=== PATIENT | male | born 1965 | race Two or more races ===

== ENCOUNTER 2019-05-21 16:06 | Emergency (ER) | payer OTHER ==
[2019-05-21 16:13] VITALS: BMI 25.7
--- NOTE | 2019-05-21 18:34 | PDOC ---
History of Present Illness - General Chief Complaint: Chest Pain Stated Complaint: CHEST PAIN X3 DAYS Time Seen by Provider: 05/21/19 17:36 History Source: Patient Exam Limitations: Language Barrier - History of Present Illness Initial Comments: 05/21/19 18:29 53yo M with PMH of NIDDM presenting to ED with complaints of on and off chest pain and shortness of breath with palpitations x3d. Pt states that three days ago he had a pain in the middle of his chest which was not triggered by anything but relieved by Aleeve. He had a similar episode today relieved by Aleeve. The episodes of shortness of breath which are brief are not associated with the chest pain. Pt states he has random episodes of sob with palpitations and does not know why. It is not brought on by exertion. 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 Right now patient is not experiencing any symptoms. Denies syncope, abdominal pain, n/v/d, cough, congestion, back pain, numbness/ tingling, headache. He denies history of CVD in the family and is a non smoker. PMD: none PSH: none Meds: Metformin Allergies: nkda Past History - Past Medical History Allergies/Adverse Reactions: Allergies Allergy/AdvReac Type Severity Reaction Status Date / Time No Known Allergies Allergy Verified 05/21/19 16:13 COPD: No Diabetes: Yes (NIDDM) - Suicide/Smoking/Psychosocial Hx Smoking History: Never smoked Review of Systems - Review of Systems Constitutional: No: Symptoms Reported HEENTM: No: Symptoms Reported Respiratory: Yes: See HPI Cardiac (ROS): Yes: See HPI ABD/GI: No: Symptoms Reported : No: Symptoms Reported Musculoskeletal: Yes: See HPI Integumentary: No: Symptoms Reported Neurological: No: Symptoms reported *Physical Exam - Vital Signs Last Vital Signs Temp Pulse Resp BP Pulse Ox 97 F L 99 H 18 140/89 98 05/21/19 16:10 05/21/19 16:10 05/21/19 16:10 05/21/19 16:10 05/21/19 16:10 - Physical Exam General Appearance: Yes: Nourished, Appropriately Dressed. No: Apparent Distress HEENT: positive: EOMI, JANA, Normal ENT Inspection Neck: positive: Trachea midline, Supple Respiratory/Chest: positive: Lungs Clear, Normal Breath Sounds. negative: Chest Tender, Accessory Muscle Use, Decreased Breath Sounds, Crackles, Rales, Rhonchi, Stridor, Wheezing Cardiovascular: positive: Regular Rhythm, Regular Rate, S1, S2. negative: Edema , JVD Vascular Pulses: Dorsalis-Pedis (R): 2+, Doralis-Pedis (L): 2+ Gastrointestinal/Abdominal: positive: Normal Bowel Sounds, Soft. negative: Tender Musculoskeletal: negative: CVA Tenderness, CVA Tenderness (R) Extremity: positive: Normal Capillary Refill. 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 II-XII NML intact, Fully Oriented, Alert, Normal Mood/ Affect, Normal Response, Motor Strength 5/5 Heart Score/ECG Review - History History: Slightly suspicious - Electrocardiogram EKG: Normal - Age Age: 45-65 - Risk Factors Risk Factors Heart Score: Yes Hx Diabetes Based on the list above the patient has:: 1-2 risk factors - Troponin Troponin: </= normal limit - Score Heart Score - Total: 2 ED Treatment Course - LABORATORY CBC & Chemistry Diagram: 05/21/19 18:00 05/21/19 18:00 - RADIOLOGY Radiology Studies Ordered: Category Date Time Status CHEST PA & LAT [RAD] Stat Radiology 05/21/19 17:44 Ordered Medical Decision Making - Medical Decision Making 05/21/19 18:33 53yo M with PMH of NIDDM presenting to ED with complaints of on and off chest pain and shortness of breath with palpitations x3d. Pt states that three days ago he had a pain in the middle of his chest which was not triggered by anything but relieved by Aleeve. He had a similar episode today relieved by Aleeve. The episodes of shortness of breath which are brief are not associated with the chest pain. Pt states he has random episodes of sob with palpitations and does not know why. It is not brought on by exertion. 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 Right now patient is not experiencing any symptoms. Denies syncope, abdominal pain, n/v/d, cough, congestion, back pain, numbness/ tingling, headache. He denies history of CVD in the family and is a non smoker. Vitals: HR 99 PE: benign, no pain with palpation or with msk movement. Pain is likely msk given relief with NSAIDs. Will check d-dimer to rule out pe: cannot apply PERC and no other explanation for sob. Also checking cardiac labs, TSH, ekg, cxr. Low suspicion for asthma/copd, ild Pt is asymptomatic at this time, does not require acute intervention. ekg: NSR at 94bpm. NJ 140, Qtc 432. No kobi or depressions. 05/21/19 19:37 No white count, d-dimer negative. Chem and trop pending. CXR: no infiltrates, effusion or consolidations. Normal mediastinum and heart size. HEART score 1-2. Most likely msk in nature. Has been having pain for 3 days. If labs normal, can be dc home. Will give cardiology follow up. *DC/Admit/Observation/Transfer Diagnosis at time of Disposition: Shortness of breath Chest pain Qualifiers: Chest pain type: unspecified Qualified Code(s): R07.9 - Chest pain, unspecified - Discharge Dispostion Disposition: HOME Condition at time of disposition: Improved Decision to Admit order: No - Referrals Referrals: Rafita Gong MD [Staff Physician] - [facility] [place] [facility] [place]] - Patient Instructions Printed Discharge Instructions: DI for Shortness of Breath, DI for Chest Pain Additional Instructions: You were seen in the emergency room today for chest pain and shortness of breath. The pain is probably due to muscle soreness. I do not know the exact reason why you feel short of breath but the blood work, ekg and xray are all normal. I recommend that you make an appointment with a primary care doctor. Information for a clinic you can go to has been provided below. I also recommend seeing a lehr operator for evaluation of your heart. Referral is also provided below. You can continue to take Aleeve or Advil for the pain. Come back to the emergency room if pain gets worse, you cannot breathe, you have chest pain going to the left side of the chest, you have pain from the chest going into the back or if any new concerning symptom develops. Thank you Print Language: THAI - Post Discharge Activity
[2019-05-21 18:43] LABS: BASO % 0.6 % (0-2.0); EOS % 0.4 % (0-4.5); HEMATOCRIT 49.3 % (35.4-49); HEMOGLOBIN 16.9 GM/dL (11.7-16.9); LYMPH % 21.7 % (8-40); MCH 31.8 pg (25.7-33.7); MCHC 34.2 g/dl (32.0-35.9); MEAN CELL VOLUME 92.9 fl (80-96); MEAN PLT VOLUME 9.5 fl (7.5-11.1); MONO % 8.2 % (3.8-10.2); NEUT % 69.1 % (42.8-82.8); PLATELET COUNT 231 K/MM3 (134-434); RBC 5.31 M/mm3 (4.00-5.60); RDW 12.7 % (11.9-15.9); WHITE BLOOD COUNT 10.8 K/mm3 (4.0-10.0)
--- NOTE | 2019-05-21 18:48 | PDOC ---
Documentation entered by Anupama Garcia SCRIBE, acting as scribe for Salma Metcalf MD. Salma Metcalf MD: This documentation has been prepared by the Radha ahn Sammi, SCRIBE, under my direction and personally reviewed by me in its entirety. I confirm that the documentation accurately reflects all work, treatment, procedures, and medical decision making performed by me. Attending Attestation - Resident Resident Name: Danielle Luz - [facility] HPI: 05/21/19 18:07 The patient is a 53 year old male, with a significant PMH of DM, who presents to the emergency department for evaluation of 3 days of intermittent chest pain which is relieved with aleve. 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 He also complains of shortness of breath and 2 days of palpitations which is not associated with the chest pain. The patient denies headache and dizziness. Denies fever, chills, nausea, vomiting, diarrhea and constipation. Denies dysuria, frequency, urgency and hematuria. Allergies: NKA Social history: None reported - Physicial Exam PE: 05/21/19 18:07 CONSTITUTIONAL: Well-appearing; well-nourished; in no apparent distress HEAD: Normocephalic; atraumatic EYES: PERRL; EOM intact ENMT: External appears normal; normal oropharynx NECK: Supple; non-tender; no cervical lymphadenopathy CARD: Normal S1, S2; no murmurs, rubs, or gallops RESP: Normal chest excursion with respiration; breath sounds clear and equal bilaterally; no wheezes, rhonchi, or rales ABD: Soft, non-distended; non-tender; no palpable organomegaly, no palpable hernias EXT: Normal ROM in all four extremities; non-tender to palpation; distal pulses intact SKIN: Warm, dry, no rash NEURO: No focal neurological deficiencies. 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 Pt says the pain responds to advil. 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 Pt is currently asymptomactic with no actual complaints. Pt h/o dm on Metformin Plan: cbc, cmp,inr, d -dimer, trop, ekg , ua and reevaluate. Case endorsed to oncoming physician to f/u labs and make final disposition based on labs and physical exam.
[2019-05-21 19:23] LABS: MAGNESIUM 1.8 mg/dL (1.8-2.4)
[2019-05-21 19:41] LABS: ALBUMIN 4.6 g/dl (3.4-5.0); BILIRUBIN,TOTAL 0.9 mg/dL (0.2-1); BLOOD UREA NITROGEN 14.6 mg/dL (7-18); CALCIUM 9.7 mg/dL (8.5-10.1); CREATININE 1.1 mg/dL (0.55-1.3); POTASSIUM 4.4 mmol/L (3.5-5.1); TOT PROT 8.8 g/dl (6.4-8.2)
[2019-05-21] MEDS ORDERED: SODIUM CHLORIDE 500 ML IV STA (20:44)
[2019-05-21 21:11] VITALS: BP 116/79; PULSE 90; TEMP 97.3
--- NOTE | 2019-05-21 21:16 | PDOC ---
*Physical Exam - Vital Signs Last Vital Signs Temp Pulse Resp BP Pulse Ox 97.3 F L 90 20 116/79 98 05/21/19 21:11 05/21/19 21:11 05/21/19 21:11 05/21/19 21:11 05/21/19 21:11 ED Treatment Course - LABORATORY CBC & Chemistry Diagram: 05/21/19 18:00 05/21/19 18:00 - ADDITIONAL ORDERS Additional order review: Laboratory Results 05/21/19 05/21/19 05/21/19 18:00 18:00 18:00 D-Dimer < 215 Sodium 137 Potassium 4.4 Chloride 102 Carbon Dioxide 26 Anion Gap 10 BUN 14.6 Creatinine 1.1 Est GFR (CKD-EPI)AfAm 88.36 Est GFR (CKD-EPI)NonAf 76.24 Random Glucose 177 H Calcium 9.7 Magnesium 1.8 Total Bilirubin 0.9 AST 24 ALT 25 Alkaline Phosphatase 104 Troponin I < 0.02 Total Protein 8.8 H Albumin 4.6 TSH 1.23 05/21/19 18:00 RBC 5.31 MCV 92.9 MCHC 34.2 RDW 12.7 MPV 9.5 Neutrophils % 69.1 Lymphocytes % 21.7 Monocytes % 8.2 Eosinophils % 0.4 Basophils % 0.6 Medical Decision Making - Medical Decision Making 05/21/19 21:14 Pt here for dizziness and CP; 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 He is diabetic; well controlled. Labs normal; Trop normal; EKG normal. Vitals normal and exam normal. Pt will be discharged home with a work note. Stable for d/c he feels great. *DC/Admit/Observation/Transfer Diagnosis at time of Disposition: Shortness of breath Chest pain Qualifiers: Chest pain type: unspecified Qualified Code(s): R07.9 - Chest pain, unspecified - Discharge Dispostion Disposition: HOME Condition at time of disposition: Improved - Referrals Referrals: [facility] [place] [facility] [place] [Provider Group] Rafita Gong MD [Staff Physician] - - Patient Instructions Printed Discharge Instructions: DI for Shortness of Breath, DI for Chest Pain Additional Instructions: You were seen in the emergency room today for chest pain and shortness of breath. The pain is probably due to muscle soreness. I do not know the exact reason why you feel short of breath but the blood work, ekg and xray are all normal. I recommend that you make an appointment with a primary care doctor. Information for a clinic you can go to has been provided below. I also recommend seeing a college associate for evaluation of your heart. Referral is also provided below. You can continue to take Aleeve or Advil for the pain. Come back to the emergency room if pain gets worse, you cannot breathe, you have chest pain going to the left side of the chest, you have pain from the chest going into the back or if any new concerning symptom develops. Thank you Print Language: POLISH - Post Discharge Activity
--- NOTE | 2019-05-21 21:16 | PDOC ---
*Physical Exam - Vital Signs Last Vital Signs Temp Pulse Resp BP Pulse Ox 97.3 F L 90 20 116/79 98 05/21/19 21:11 05/21/19 21:11 05/21/19 21:11 05/21/19 21:11 05/21/19 21:11 ED Treatment Course - LABORATORY CBC & Chemistry Diagram: 05/21/19 18:00 05/21/19 18:00 - ADDITIONAL ORDERS Additional order review: Laboratory Results 05/21/19 05/21/19 05/21/19 18:00 18:00 18:00 D-Dimer < 215 Sodium 137 Potassium 4.4 Chloride 102 Carbon Dioxide 26 Anion Gap 10 BUN 14.6 Creatinine 1.1 Est GFR (CKD-EPI)AfAm 88.36 Est GFR (CKD-EPI)NonAf 76.24 Random Glucose 177 H Calcium 9.7 Magnesium 1.8 Total Bilirubin 0.9 AST 24 ALT 25 Alkaline Phosphatase 104 Troponin I < 0.02 Total Protein 8.8 H Albumin 4.6 TSH 1.23 05/21/19 18:00 RBC 5.31 MCV 92.9 MCHC 34.2 RDW 12.7 MPV 9.5 Neutrophils % 69.1 Lymphocytes % 21.7 Monocytes % 8.2 Eosinophils % 0.4 Basophils % 0.6 Medical Decision Making - Medical Decision Making 05/21/19 21:[address] Luz. Patient pending troponin for discharge which was negative. Suspect MSK origin of pain. Discharging to home for further outpatient f/u as needed. *DC/Admit/Observation/Transfer Diagnosis at time of Disposition: Shortness of breath Chest pain Qualifiers: Chest pain type: unspecified Qualified Code(s): R07.9 - Chest pain, unspecified - Discharge Dispostion Disposition: HOME Condition at time of disposition: Improved - Referrals Referrals: [facility] [place] [facility] [place] [Provider Group] Rafita Gong MD [Staff Physician] - - Patient Instructions Printed Discharge Instructions: DI for Shortness of Breath, DI for Chest Pain Additional Instructions: You were seen in the emergency room today for chest pain and shortness of breath. The pain is probably due to muscle soreness. I do not know the exact reason why you feel short of breath but the blood work, ekg and xray are all normal. I recommend that you make an appointment with a primary care doctor. Information for a clinic you can go to has been provided below. I also recommend seeing a invoice classification clerk for evaluation of your heart. Referral is also provided below. You can continue to take Aleeve or Advil for the pain. Come back to the emergency room if pain gets worse, you cannot breathe, you have chest pain going to the left side of the chest, you have pain from the chest going into the back or if any new concerning symptom develops. Thank you Print Language: ENGLISH - Post Discharge Activity Forms/Work/School Notes: Back to Work
--- NOTE | 2019-05-22 13:10 | EKG ---
Test Reason : Blood Pressure : / mmHG Vent. Rate : 094 BPM Atrial Rate : 094 BPM P-R Int : 140 ms QRS Dur : 086 ms QT Int : 346 ms P-R-T Axes : 051 040 045 degrees QTc Int : 432 ms NORMAL SINUS RHYTHM NORMAL ECG NO PREVIOUS ECGS AVAILABLE Confirmed by Rabia Bolivar ([id number]) on 05/22/2019 1:09:57 PM Referred By: Confirmed By:Rabia Bolivar
== END 2019-05-21 21:33 | disposition home or self-care (01) ==
LOC: JER 16:06
PROC: 3E0337Z Introduction of Electrolytic and Water Balance Substance into Peripheral Vein, Percutaneous Approach (ICD-10-PCS; principal; 2019-05-21)
DX: R07.9 Chest pain, unspecified (principal); E11.9 Type 2 diabetes mellitus without complications; Z79.84 Long term (current) use of oral hypoglycemic drugs
CPT/HCPCS: 36415; 71046-TC-FY; 80053; 83735; 84443; 84484; 85025; 85379; 93005; 93010; 96360; 99284-25

== ENCOUNTER 2019-09-12 10:23 | Emergency (ER) | payer OTHER ==
[2019-09-12 10:36] VITALS: BP 116/93; PULSE 108; TEMP 98.5; BMI 26.2
--- NOTE | 2019-09-12 10:55 | PDOC ---
History of Present Illness - General Chief Complaint: Back Pain Stated Complaint: BACK PAIN Time Seen by Provider: 09/12/19 10:44 History Source: Patient Exam Limitations: No Limitations Past History - Travel Traveled outside of the country in the last 30 days: No Close contact w/someone who was outside of country & ill: No - Past Medical History Allergies/Adverse Reactions: Allergies Allergy/AdvReac Type Severity Reaction Status Date / Time No Known Allergies Allergy Verified 05/21/19 16:13 Home Medications: Ambulatory Orders Ibuprofen 600 mg PO Q6H #30 tablet 09/12/19 Methocarbamol [Robaxin -] 500 mg PO BID #14 tablet 09/12/19 COPD: No Diabetes: Yes (NIDM) - Immunization History Immunization Up to Date: Yes - Psycho Social/Smoking Cessation Hx Smoking History: Never smoked Information on smoking cessation initiated: No Hx Alcohol Use: No Drug/Substance Use Hx: No Review of Systems - Review of Systems Able to Perform ROS?: Yes Comments:: 09/12/19 11:59 CONSTITUTIONAL: Absent: fever, chills, diaphoresis, generalized weakness, malaise, loss of appetite HEENT: Absent: rhinorrhea, nasal congestion, throat pain, throat swelling, difficulty swallowing, mouth swelling, ear pain, eye pain, visual Changes CARDIOVASCULAR: Absent: chest pain, loss of consciousness, palpitations, irregular heart rate, peripheral edema RESPIRATORY: Absent: cough, shortness of breath, dyspnea with exertion, orthopnea, wheezing, stridor, hemoptysis MUSCULOSKELETAL: Present: Low back pain, upper back pain, left shoulder pain. Absent: myalgia, joint swelling SKIN: Absent: rash, itching, pallor NEUROLOGIC: Absent: headache, focal weakness or paresthesias, dizziness, unsteady gait, seizure, mental status changes, bladder or bowel incontinence PSYCHIATRIC: Absent: anxiety, depression, suicidal or homicidal ideation, hallucinations. Is the patient limited Tamazight proficient: No *Physical Exam - Vital Signs Last Vital Signs Temp Pulse Resp BP Pulse Ox 98.5 F 108 H 18 116/93 100 09/12/19 10:33 09/12/19 10:33 09/12/19 10:33 09/12/19 10:33 09/12/19 10:33 - Physical Exam Comments: 09/12/19 12:07 GENERAL: Well developed, well nourished. Awake and alert. No acute distress. HEENT: Normocephalic, atraumatic. PERRLA, EOMI. No conjunctival pallor. Sclera are non- icteric. Moist mucous membranes. Oropharynx is clear. NECK: Supple. Full ROM. No JVD. Carotid pulses 2+ and symmetric, without bruits. No thyromegaly. No lymphadenopathy. CARDIOVASCULAR: Regular rate and rhythm. No murmurs, rubs, or gallops. Distal pulses are 2+ and symmetric. PULMONARY: No evidence of respiratory distress. Lungs clear to auscultation bilaterally. No wheezing, rales or rhonchi. ABDOMINAL: Soft. Non-tender. Non-distended. No rebound or guarding. No organomegaly. Normoactive bowel sounds. MUSCULOSKELETAL Normal range of motion at all joints. No bony deformities or tenderness. No CVA tenderness. EXTREMITIES: No cyanosis. No clubbing. No edema. No calf tenderness. SKIN: Warm and dry. Normal capillary refill. No rashes. No jaundice. NEUROLOGICAL: Alert, awake, appropriate. Cranial nerves 2-12 intact. No deficits to light touch and temperature in face, upper extremities and lower extremities. No motor deficits in the in face, upper extremities and lower extremities. Normoreflexic in the upper and lower extremities. Normal speech. Toes are down- going bilaterally. Gait is normal without ataxia. PSYCHIATRIC: Cooperative. Good eye contact. Appropriate mood and affect. Medical Decision Making - Medical Decision Making 09/12/19 12:07 The patient is a 53-year-old male who presents to the ER for injuries from a fall. He states that 3 days ago he was at work standing on a ladder about ceiling height when he fell. He states he landed on his back and his left shoulder. He states at the time of the fall he only had left foot pain and left elbow pain. He was evaluated in urgent care and was told his x-rays did not have any broken bones. He states that this morning he woke up with low back pain, upper back pain and he felt his shoulder move. He states that he is a bump over his left shoulder. Denies fevers, chills, numbness and tingling and weakness the affected extremities, saddle anesthesia and bladder bowel incontinence. A/P: Injuries from a fall -Pt with TTP of the L paraspinous muscles, L3-L5, T6-T10, with palpable knot consistent with muscle spasm. Positive midline tenderness. Negative straight leg raise testing bilaterally. -Bump noticed over the left clavicle just proximal to the shoulder joint. -No saddle anesthesia or bladder/bowel incontinence. No CVA tenderness. -X-rays show no fractures at this time. Likely a left AC joint sprain given the bump over the clavicle. Will recommend a sling. -Pt is neurologically intact on exam with no focal findings. -Toradol given with relief of symptoms -DC home. Ortho follow up given for if symptoms do not resolve. -I discussed the physical exam findings, ancillary test results and final diagnoses with the patient. I answered all of the patient's questions. The patient was satisfied with the care received and felt comfortable with the discharge plan and treatment plan. The Patient agrees to follow up with the primary care physician/specialist within 24-72 hours. Return precautions were given. Discharge - Discharge Information Problems reviewed: Yes Clinical Impression/Diagnosis: Back pain Qualifiers: Back pain location: low back pain Chronicity: acute Back pain laterality: midline Sciatica presence: without sciatica Qualified Code(s): M54.5 - Low back pain Left shoulder pain Qualifiers: Chronicity: acute Qualified Code(s): M25.512 - Pain in left shoulder Condition: Stable Disposition: HOME - Admission No - Follow up/Referral Referrals: Shad Jaimes MD [Staff Physician] - - Patient Discharge Instructions Patient Printed Discharge Instructions: DI for Low Back Pain, DI for Shoulder Pain Additional Instructions: You were evaluated for your pain today after your fall. Your x-rays did not show any broken bones. I suspect you have a sprain of your clavicle which is why there is the bump. Please use the sling for comfort. Follow-up with orthopedics this week. You may take the Motrin starting tonight. Take 600 mg every 6 hours as needed for pain. You may take the Robaxin twice a day. This is a muscle relaxer. Do not drink or drive after taking this medication as it may make you drowsy. Return to the ER for any new or worsening symptoms. Te evaluaron para tu dolor hoy despus de tu cada. Las radiografas no mostraron huesos rotos. Sospecho que tienes un esguince de tu clavcula por eso est el bulto. Por favor, utilice el eslinga para mayor comodidad. Seguimiento con ortopedia esta semana. Puedes david el Motrin a partir de esta noche. Temperance 600 mg cada 6 horas segn sea necesario para el dolor. Puede david el Robaxin dos veces al da. Sarah es un relajante muscular. No karan ni conduzca despus de david sarah medicamento, ya que puede causarle somnolencia. Regrese a Urgencias para cualquier sntoma nuevo o que empeore. Print Language: CONGOLESE - Post Discharge Activity Work/Back to School Note: Back to Work
[2019-09-12] MEDS ORDERED: LIDOCAINE 5% TOPICAL PATCH TP ONE (11:36)
[2019-09-12] MEDS ORDERED: KETOROLAC TROMETHAMINE 60 MG/2 ML VIAL IM ONE (11:36)
[2019-09-12] MEDS ORDERED: LIDOCAINE 5% TOPICAL PATCH ONE (11:39)
[2019-09-12] MEDS ORDERED: KETOROLAC TROMETHAMINE 60 MG/2 ML VIAL ONE (11:39)
== END 2019-09-12 12:45 | disposition home or self-care (01) ==
LOC: JERFT 10:23
PROC: 3E0233Z Introduction of Anti-inflammatory into Muscle, Percutaneous Approach (ICD-10-PCS; principal; 2019-09-12)
DX: M54.5 Low back pain (principal); M25.512 Pain in left shoulder; W11.XXXA Fall on and from ladder, initial encounter; Y93.89 Activity, other specified; Y92.69 Other specified industrial and construction area as the place of occurrence of the external cause; Y99.0 Civilian activity done for income or pay; E11.9 Type 2 diabetes mellitus without complications; Z79.84 Long term (current) use of oral hypoglycemic drugs
CPT/HCPCS: 72070-TC-FY; 72100-TC-FY; 73000-TC-LT-FY; 73030-TC-LT-FY; 99282-25

== ENCOUNTER 2019-11-16 12:30 | Emergency (ER) | payer OTHER ==
--- NOTE | 2019-11-16 12:48 | PDOC ---
Rapid Medical Evaluation Time Seen by Provider: 11/16/19 12:40 Medical Evaluation: Allergies Allergy/AdvReac Type Severity Reaction Status Date / Time No Known Allergies Allergy Verified 05/21/19 16:13 11/16/19 12:46 CC: chronic left shoulder pain. Requesting pain Rx. Follows with ortho PE: No acute findings. Orders: toradol Patient will proceed to the ED for further evaluation. 11/16/19 12:49 Discharge Disposition - Diagnosis Left shoulder pain - Referrals - Patient Instructions - Post Discharge Activity
[2019-11-16] MEDS ORDERED: KETOROLAC TROMETHAMINE 30 MG/1 ML VIAL IM ONE (12:51)
[2019-11-16 12:56] VITALS: BP 113/84; PULSE 111; TEMP 97.3; BMI 27.4
[2019-11-16] MEDS ORDERED: KETOROLAC TROMETHAMINE 30 MG/1 ML VIAL ONE (13:23)
--- NOTE | 2019-11-16 13:39 | PDOC ---
History of Present Illness - General Chief Complaint: Pain Stated Complaint: PAIN Time Seen by Provider: 11/16/19 12:40 History Source: Patient - History of Present Illness Occurred: reports: this morning Upper Extremity Pain Location: left: shoulder Past History - Past Medical History Allergies/Adverse Reactions: Allergies Allergy/AdvReac Type Severity Reaction Status Date / Time No Known Allergies Allergy Verified 05/21/19 16:13 Home Medications: Ambulatory Orders Ibuprofen 600 mg PO Q6H #30 tablet 09/12/19 Methocarbamol [Robaxin -] 500 mg PO BID #14 tablet 09/12/19 Naproxen 500 mg PO BID #30 tablet 11/16/19 COPD: No Diabetes: Yes (NIDM) - Immunization History Immunization Up to Date: Yes - Psycho Social/Smoking Cessation Hx Smoking History: Never smoked Hx Alcohol Use: No Drug/Substance Use Hx: No Review of Systems - Review of Systems Musculoskeletal: Yes: Joint Pain, Joint Swelling Neurological: No: Numbness, Tingling, Weakness *Physical Exam - Vital Signs Last Vital Signs Temp Pulse Resp BP Pulse Ox 97.3 F L 111 H 20 113/84 98 11/16/19 12:49 11/16/19 12:49 11/16/19 12:49 11/16/19 12:49 11/16/19 12:49 - Physical Exam General Appearance: Yes: Appropriately Dressed, Mild Distress HEENT: positive: Normal Voice Neck: positive: Supple Respiratory/Chest: negative: Respiratory Distress Musculoskeletal: positive: Other (+ deformity over L AC joint with significant tenderness to site and to GH joint, unable to abduct LUE, LUE strength 3/5 compared to 5/5 RUE, pulses intact ) Integumentary: positive: Dry, Warm Neurologic: positive: Fully Oriented, Alert, Normal Mood/Affect. negative: Sensory Deficit ED Treatment Course - RADIOLOGY Radiology Studies Ordered: Category Date Time Status CLAVICLE-LEFT SIDE [RAD] Stat Radiology 11/16/19 13:27 Ordered SHOULDER-LEFT [RAD] Stat Radiology 11/16/19 13:26 Ordered - Medications Given in the ED: ED Medications Discontinued Medications Generic Name Dose Route Start Last Admin Trade Name Freq PRN Reason Stop Dose Admin Ketorolac Tromethamine 30 mg 11/16/19 12:51 11/16/19 13:24 Toradol Injection - IM 11/16/19 12:52 30 mg ONCE ONE Administration Medical Decision Making - Medical Decision Making 11/16/19 13:45 54-year-old male, no sig hx, here with L shoulder pain. Patient states he was seen in ED 2 months ago for L shoulder pain after fall from ladder where he fell onto his back and L shoulder. Per exam, patient was noted to have swelling over his AC joint. X-rays shoulder and clavicle were negative and patient was told possible AC joint sprain and to follow-up with ortho as needed. Pt states he has had on and off pain since that worsened this am w/ LROM 2/2 pain. No sensory changes. Has not taken anything for pain see exam L shoulder pain S/p fall 2 months ago w/ neg XR at [facility] X[facility] today read as neg for acute pathology Will get CT scan given significant exam findings 11/16/19 17:14 CT L shoulder read as mucosal deformity over AC joint with some degenerative bony changes and a calcification in region of the superior glenoid labrum, no fracture, malalignment, effusion or bursal fluid accumulation. Patient already in sling. Will dc with pain control and ortho follow-up. Copy of CT report given to patient Discharge - Discharge Information Problems reviewed: Yes Clinical Impression/Diagnosis: Left shoulder pain Qualifiers: Chronicity: unspecified Qualified Code(s): M25.512 - Pain in left shoulder Condition: Improved Disposition: HOME - Additional Discharge Information Prescriptions: Naproxen 500 mg PO BID #30 tablet - Follow up/Referral Referrals: Shad Jaimes MD [Staff Physician] - - Patient Discharge Instructions Patient Printed Discharge Instructions: DI for Shoulder Pain Additional Instructions: Arcos radiografa no mostr ninguna fractura o dislocacin. Hay rebecca masa de tejido blando sobre donde tiene el bulto en el hombro. Tambin hay algo de artritis en rick jose. [place] podra explicar arcos dolor. Enviamos medicamentos para el dolor a arcos farmacia. Tmelo segn las indicaciones y use rebecca honda para mayor comodidad. Deber hacer un seguimiento con un mdico ortopdico para rebecca evaluacin adicional para rebecca posible resonancia magntica. Te dieron el Dr. Root. Por favor llame para rebecca jacob Print Language: TAMAZIGHT - Post Discharge Activity Work/Back to School Note: Back to Work
== END 2019-11-16 17:30 | disposition home or self-care (01) ==
LOC: JERFT 12:30
PROC: 3E0233Z Introduction of Anti-inflammatory into Muscle, Percutaneous Approach (ICD-10-PCS; principal; 2019-11-16)
DX: M25.512 Pain in left shoulder (principal); E11.9 Type 2 diabetes mellitus without complications
CPT/HCPCS: 73000-TC-LT-FY; 73030-TC-LT-FY; 73200-TC-RT; 99282-25

== ENCOUNTER 2021-01-02 05:24 | Day surgery (SDC) | payer OTHER ==
[2020-11-14 17:10] VITALS: BMI 25.7
[~2021-01-02 05:24] MED LIST: ceFAZolin SODIUM 1 GM VIAL IVPB ONE
[2021-01-02] MEDS ORDERED: MIDAZOLAM HCL 2 MG/2 ML SINGLE DOSE VIAL ONE ×3 (08:52→09:04)
[2021-01-02] MEDS ORDERED: PROPOFOL 20 ML ONE ×3 (09:04→10:05)
[2021-01-02 09:43] LABS: BASO % 0.3 % (0-2.0); EOS % 0.8 % (0-4.5); HEMATOCRIT 45.2 % (35.4-49); HEMOGLOBIN 15.4 GM/dL (11.7-16.9); LYMPH % 36.4 % (8-40); MEAN CELL VOLUME 94.2 fl (80-96); MEAN PLT VOLUME 8.6 fl (7.5-11.1); MONO % 11.8 % (3.8-10.2); NEUT % 50.7 % (42.8-82.8); PLATELET COUNT 228 K/MM3 (134-434); RDW 12.7 % (11.9-15.9); WHITE BLOOD COUNT 6.2 K/mm3 (4.0-10.0)
[2021-01-02] MEDS ORDERED: SUCCINYLCHOLINE CHLORIDE 200 MG/10 ML SYRINGE ONE (10:05)
[2021-01-02] MEDS ORDERED: ceFAZolin SODIUM 1 GM VIAL IVPB ONE (10:24)
[2021-01-02] MEDS ORDERED: ePHEDrine SULFATE 50 MG/1 ML AMPULE ONE (10:47)
[2021-01-02] MEDS ORDERED: oxyCODONE HCL 5 MG TABLET PO PRN ×2 (11:11→11:25)
[2021-01-02] MEDS ORDERED: ONDANSETRON 4 MG/2 ML VIAL IVPUSH PRN ×2 (11:11→11:25)
[2021-01-02] MEDS ORDERED: LACTATED RINGERS SOLUTION 1,000 ML IV SCH (11:15)
[2021-01-02] MEDS ORDERED: PROMETHAZINE HCL 25 MG/1 ML VIAL IVPUSH PRN (11:25)
[2021-01-02 14:28] VITALS: BP 136/80; PULSE 89; TEMP 98
== END 2021-01-02 15:00 | disposition home or self-care (01) ==
LOC: JASU-SURG 05:24
PROVIDERS: ATTEND Orthopaedic Surgery
PROC: 0RU Upper Joints, Supplement (ICD-10-PCS; 2021-01-02)
PROC: 0RSH0ZZ Reposition Left Acromioclavicular Joint, Open Approach (ICD-10-PCS; principal; 2021-01-02 10:00)
DX: S43.102A Unspecified dislocation of left acromioclavicular joint, initial encounter (principal); X58.XXXA Exposure to other specified factors, initial encounter; Y93.9 Activity, unspecified; Y92.9 Unspecified place or not applicable; Y99.9 Unspecified external cause status; E11.9 Type 2 diabetes mellitus without complications
CPT/HCPCS: 23552; C1713; 36415; 85025; 88304-TC; 88311-TC; 94760

== ENCOUNTER 2022-05-24 12:28 | Emergency (ER) | payer OTHER ==
[2022-05-24 13:09] VITALS: BP 131/76; PULSE 90; RESP 20; TEMP 98.1; BMI 21.6
[2022-05-24] MEDS ORDERED: KETOROLAC TROMETHAMINE 30 MG/1 ML VIAL IM ONE (14:34)
[2022-05-24] MEDS ORDERED: DEXAMETHASONE SOD PHOSPHATE 10 MG/1 ML VIAL IM ONE (14:34)
[2022-05-24] MEDS ORDERED: DEXAMETHASONE SOD PHOSPHATE 10 MG/1 ML VIAL ONE (14:42)
[2022-05-24] MEDS ORDERED: KETOROLAC TROMETHAMINE 30 MG/1 ML VIAL ONE (14:43)
[2022-05-24] MEDS ORDERED: LIDOCAINE 5% TOPICAL PATCH TP ONE (14:45)
[2022-05-24] MEDS ORDERED: LIDOCAINE 5% TOPICAL PATCH ONE (14:49)
[2022-05-24 15:25] LABS: THROAT:GRP A STREP NOT DETECTED (NOTDETECTED)
[2022-05-24] MEDS ORDERED: LIDOCAINE PATCH REMOVAL MC SCH (22:00)
== END 2022-05-24 16:03 | disposition home or self-care (01) ==
LOC: JER 12:28
PROC: 3E0233Z Introduction of Anti-inflammatory into Muscle, Percutaneous Approach (ICD-10-PCS; principal; 2022-05-24)
PROC: 3E0233Z Introduction of Anti-inflammatory into Muscle, Percutaneous Approach (ICD-10-PCS; 2022-05-24)
DX: M54.2 Cervicalgia (principal); J02.9 Acute pharyngitis, unspecified
CPT/HCPCS: 0241U-QW; 87651; 99284-25; J1100